=== PATIENT | male | born 1990 | race Caucasian/White ===

== ENCOUNTER 2019-09-24 02:25 | Emergency (ER) | payer BC, MEDICAID ==
[~2019-09-24] VITALS: Ht 172.7 cm; Wt 81.6 kg
[2019-09-24 02:25] VITALS: BP_SYST 155
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
--- NOTE | 2019-09-24 02:25 | NUR ---
ER Dr. Kenney at bedside examining patient.
--- NOTE | 2019-09-24 02:25 | NUR ---
Patient to ER bed 1 to gown for evaluation. Side rails up and placed on monitor worker.
--- NOTE | 2019-09-24 02:30 | NUR ---
# 20 gauge angiocath placed to RAC. Use of asceptic technique. Opsite placed over site. Blood return noted. Flushed with 10 cc of normal saline. No evidence of infiltration noted. Patient tolerated well.
--- NOTE | 2019-09-24 02:30 | NUR ---
# 18 gauge angiocath placed to left wrist. Placed by ALS in field. Flushed with 10 cc of normal saline. No evidence of infiltration noted. Patient tolerated well.
--- NOTE | 2019-09-24 02:36 | NUR ---
Adenosine 6mg IV push administered. Cardioversion unsuccessful.
--- NOTE | 2019-09-24 02:40 | NUR ---
Ativan 0.5mg IV push administered for patient agitation per MD orders.
--- NOTE | 2019-09-24 02:42 | NUR ---
Adenosine 12mg IV push administered. Cardioversion successful. EKG strip completed. aware.
[2019-09-24] MEDS ORDERED: ADENOSINE 6MG/2ML VIAL IVP ONE ×2 (02:45)
[2019-09-24] MEDS ORDERED: LORazepam 2 MG/ML VIAL IVP ONE ×2 (02:45)
--- NOTE | 2019-09-24 02:45 | NUR ---
Patient refused to give blood for lab work. notified.
--- NOTE | 2019-09-24 02:46 | NUR ---
Ativan 0.5mg administered per MD order for patient agitation.
[2019-09-24] MEDS ORDERED: ADENOSINE 6MG/2ML VIAL ONE ×2 (02:48→02:57)
[2019-09-24] MEDS ORDERED: LORazepam 2 MG/ML VIAL ONE (02:54)
[2019-09-24] MEDS ORDERED: NACL 0.9% 1,000 ML IV ONE ×2 (03:00→03:45)
--- NOTE | 2019-09-24 03:01 | NUR ---
Fiance at bedside speaking with patient about progression of care. Patient on hall monitor and showing stable sinus tachycardia.
--- NOTE | 2019-09-24 03:22 | NUR ---
Patient refused for the second time for a blood draw. Patient is refusing to give urine for a lab sample. notified.
[2019-09-24] MEDS ORDERED: METOCLOPRAMIDE HCL 10 MG/2 ML VIAL IVP ONE (03:30)
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
--- NOTE | 2019-09-24 03:40 | NUR ---
Dr. Kenney spoke with patient about refusal of care and patient continues to deny all forms of care.
--- NOTE | 2019-09-24 03:40 | NUR ---
Dr. Kenney spoke with Patient and Fiance of patient (Sulema Macias) bedside, educating and advising patient of the need for continued care. Pt again expressed desire to leave against medical advice.
[2019-09-24 03:45] VITALS: BP_SYST 138
--- NOTE | 2019-09-24 03:45 | NUR ---
Patient does not wish to proceed with medical care recommended by Dr. Kenney. Patient given information related to possible complications, up to and including , which could occur as a result of leaving hospital at this time. Patient verbalizes understanding of risks involved leaving against medical advice. Patient has signed AMA form.
[2019-09-24 04:09] LABS: BILIRUBIN,URINE NEGATIVE (NEGATIVE); CLARITY/URINE CLEAR (CLEAR); COLOR,URINE YELLOW (YELLOW); GLUCOSE,URINE 1+ (NEGATIVE); KETONES,URINE NEGATIVE (NEGATIVE); LEUKOCYTE ESTERASE ,URINE NEGATIVE (NEGATIVE); NITRITE, URINE NEGATIVE (NEGATIVE); PROTEIN URINE NEGATIVE (NEGATIVE); UROBILINOGEN,URINE 0.2 (0.2-1.0)
[2019-09-24 04:11] LABS: BLOOD, URINE TRACE (NEGATIVE)
[2019-09-24 04:14] LABS: BACTERIA,URINE RARE /HPF (None Seen); WBC,URINE 0-3 /HPF (0-3)
[2019-09-24 04:15] LABS: BARBITURATE, URINE NEGATIVE (NEG <=200); BENZODIAZEPINE, URINE NEGATIVE (NEG <=150); CANNABINOID, URINE POSITIVE (NEG <=50); COCAINE, URINE NEGATIVE (NEG <=150); METHAMPHETAMINES SCREEN,URINE NEGATIVE (NEG <=500); OPIATE, URINE NEGATIVE (NEG <=100); PHENCYCLIDINE SCREEN,URINE NEGATIVE (NEG <=25); UR TRICYCLIC ANTIDEPRESSANTS NEGATIVE (NEG <=300); URINE AMPHETAMINE NEGATIVE (NEG <=500); URINE METHADONE NEGATIVE (NEG <=200); URINE OXYCODONE SCREEN NEGATIVE (NEG <=100); URINE PROPOXYPHENE SCREEN NEGATIVE (NEG <=300)
== END 2019-09-24 03:45 | disposition left against medical advice (07) ==
LOC: SED 02:25
DX: I47.1 Supraventricular tachycardia (principal); R55 Syncope and collapse; F19.10 Other psychoactive substance abuse, uncomplicated; F12.90 Cannabis use, unspecified, uncomplicated; F17.200 Nicotine dependence, unspecified, uncomplicated
CPT/HCPCS: 71045; 80307; 81000; 93005; 96361; 96374; 96375; 99285; J0153; J2060; J7030

== ENCOUNTER 2020-01-05 23:13 | Emergency (ER) | payer BC, MEDICAID ==
[~2020-01-05] VITALS: Ht 172.7 cm; Wt 90.7 kg
[2020-01-05 23:13] VITALS: BP_SYST 169
--- NOTE | 2020-01-05 23:13 | NUR ---
Pt biba to bed 6 for evaluation
[2020-01-06] MEDS ORDERED: DILTIAZEM HCL 25 MG/5 ML VIAL IVP ONE
[2020-01-06] MEDS ORDERED: NACL 0.9% 1,000 ML IV ONE (00:15)
--- NOTE | 2020-01-06 00:18 | NUR ---
Pt refused blood draw, ER aware
--- NOTE | 2020-01-06 00:29 | NUR ---
Dr. Jacobs bedside for pt eval
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
[2020-01-06] MEDS ORDERED: METOPROLOL TARTRATE 5 MG/5 ML VIAL IVP ONE (01:00)
[2020-01-06 01:20] VITALS: BP_SYST 122
--- NOTE | 2020-01-06 01:20 | NUR ---
Patient given written and verbal discharge instructions and verbalizes understanding. ER MD discussed with patient the results and treatment provided. Patient in stable condition. ID arm band removed. IV catheter removed intact and dressing applied, no active bleeding. Patient educated on pain management and to follow up with PMD. Pain Scale 0/10 Opportunity for questions provided and answered.
== END 2020-01-06 01:20 | disposition home or self-care (01) ==
LOC: SED 23:13
DX: I48.91 Unspecified atrial fibrillation (principal)
CPT/HCPCS: 93005; 96361; 96374; 96375; 99284; J3490 ×2; J7030